=== PATIENT | female | born 1985 | race Two or more races ===

== ENCOUNTER 2020-12-17 11:42 | Outpatient (CLI) | payer SELFPAY ==
[2020-09-20 12:41] VITALS: BMI 33.0
[~2020-12-17 11:42] MED LIST: KEFLEX500 MG PO; MONISTAT-7 VAG45 G1 VG; REGLAN10 MG PO
[2020-12-17 13:44] LABS: BILIRUBIN NEGATIVE (NEGATIVE); KETONE NEGATIVE (NEGATIVE); NITRITE NEGATIVE (NEGATIVE); UROBILINOGEN NORMAL mg/dL (< 2)
[2020-12-17 13:46] LABS: BACTERIA MODERATE HPF (NONE SEEN); SQUAMOUS EPITHELIAL 0-5 HPF (0-4); WHITE CELLS - URINE RARE HPF (0-4)
== END 2020-12-17 14:23 | disposition home or self-care (01) ==
LOC: D.LDO 11:42
PROVIDERS: ATTEND Obstetrics & Gynecology
DX: O26.899 Other specified pregnancy related conditions, unspecified trimester (principal)

== ENCOUNTER 2021-01-06 04:45 | Observation (INO) | payer MEDICAID ==
[~2021-01-06] VITALS: Ht 157.5 cm; Wt 81.8 kg
[2021-01-06 04:47] VITALS: Ht 157.5 cm; Wt 81.8 kg
--- NOTE | 2021-01-06 04:54 | NUR ---
PRIOR TO TRIAGE CONSULTED OB OC DR. MENDOZA WHO REQUESTED PT BE EVALUATED IN ED.
[2021-01-06 05:06] LABS: BILIRUBIN NEGATIVE (NEGATIVE); KETONE NEGATIVE (NEGATIVE); NITRITE NEGATIVE (NEGATIVE); UROBILINOGEN NORMAL mg/dL (< 2)
[2021-01-06 05:12] LABS: BASOPHILS 0.2 % (0-2); EOSINOPHILS 2.8 % (0-7); HEMATOCRIT 32.2 % (36.0-48.0); HEMOGLOBIN 10.3 g/dL (12-16); IMMATURE GRANULOCYTES 0.6 % (0-5); LYMPHOCYTE ABS# 2.11 10x3/uL (1.18-3.74); LYMPHOCYTES 21.7 % (15-50); MCH 26.6 pg (26.0-34.0); MCV 83.2 fL (80.0-100.0); MONOCYTES 5.2 % (2-11); NEUTROPHIL ABS# 6.77 10x3/uL (1.56-6.13); NEUTROPHILS 69.5 % (40-80); PLATELET COUNT 270 10x3/uL (130-400); RBC 3.87 10x6/uL (4.00-5.40); RDW 13.6 % (11.5-14.5); WBC 9.7 10x3/uL (4.8-10.8)
--- NOTE | 2021-01-06 05:12 | NUR ---
FHT 163. PT TOLERATED WELL MD SHAFFER
[2021-01-06 05:26] LABS: CALC OSMOLALITY 269 mosm/kg (275-300); CALCIUM 8.5 mg/dL (8.5-10.1); CARBON DIOXIDE 19.4 mmol/L (21.0-32.0); CHLORIDE - SERUM 104 mmol/L (98-107); CREATININE - SERUM 0.5 mg/dL (0.6-1.3); GLUCOSE 108 mg/dL (74-106); POTASSIUM - SERUM 3.8 mmol/L (3.5-5.1); SODIUM 136 mmol/L (136-145); UREA NITROGEN 5 mg/dL (7-18); eGFR NON AFRICAN AMERICAN > 90 mL/min (90-120)
[2021-01-06 05:32] LABS: ALBUMIN 2.3 g/dL (3.4-5.0); ALKALINE PHOSPHATASE 86 U/L (30-120); ALT (SGPT) 9 U/L (10-68); PROTEIN - SERUM 7.3 g/dL (6.4-8.2)
[2021-01-06 05:35] LABS: BILIRUBIN - TOTAL 0.07 mg/dL (0.2-1.3)
--- NOTE | 2021-01-06 06:04 | NUR ---
US AT BEDSIDE.
[2021-01-06 06:31] VITALS: BP 88/35
--- NOTE | 2021-01-06 07:33 | NUR ---
22 GAUGE IV STARTED TO RIGHT FOREARM. PATIENT TOLERATED WELL. NO S/S OF INFILTRATION, FLUIDS RUNNING PER ORDERS. FAMILY AT BEDSIDE. NO DISTRESS NOTED. WAITING FOR ROOM ASSIGNMENT AT THIS TIME.
[2021-01-06 07:44] VITALS: BP 115/61
[2021-01-06 10:00] LABS: AMYLASE - SERUM 58 U/L (25-115); LIPASE 79 U/L (73-393)
== END 2021-01-06 15:15 | disposition home or self-care (01) ==
LOC: D.ER 04:45 → D.MS 07:09 → OBSVTIME 07:09 → D.LD 07:52
PROVIDERS: Family Medicine; ADMIT Obstetrics & Gynecology; ATTEND Obstetrics & Gynecology
DX: O99.612 Diseases of the digestive system complicating pregnancy, second trimester (principal); Z3A.23 23 weeks gestation of pregnancy; R10.11 Right upper quadrant pain

== ENCOUNTER → 2021-01-14 12:57 | Outpatient (CLI) | payer MEDICAID | END | disposition home or self-care (01) | LOC: D.US 12:57 | DX: O09.90 Supervision of high risk pregnancy, unspecified, unspecified trimester (principal) ==